=== PATIENT | male | born 1990 | race Caucasian/White ===

== ENCOUNTER 2019-08-03 23:29 | Emergency (ER) | payer OTHER ==
[2019-08-04] MEDS ORDERED: hydrOXYzine Pamoate 25 mg Capsule ONE (01:13)
[2019-08-04] MEDS ORDERED: Nicotine 14 MG PATCH ONE (01:13)
[2019-08-04] MEDS ORDERED: OLANZapine 5 MG TAB ONE (01:13)
[2019-08-04] MEDS ORDERED: Acetaminophen 325 MG TAB ONE (01:13)
[2019-08-04] MEDS ORDERED: traZODone HCl 50 MG TAB ONE (01:13)
[2019-08-04 01:15] LABS: #Basophils 0.1 thou/uL (0.0-0.2); #Eosinphils 0.3 thou/uL (0.0-0.7); #Lymphocytes 3.1 thou/uL (1.20-3.40); #Monocytes 0.7 thou/uL (0.11-0.59); #Neutrophils 2.4 thou/uL (1.40-6.50); %Basophils 0.8 % (0.0-1.0); %Eosinophils 4.7 % (0.0-10.0); %Monocytes 9.9 % (0.0-10.0); %Neutrophils 36.6 % (42.0-75.0); Hemoglobin 15.2 g/dL (14.0-18.0); Mean Corpuscular Hemoglobin 35.5 pg (27.0-31.0); Mean Corpuscular Volume 98.7 fL (78.0-98.0); Mean Platelet Volume 7.1 fL (7.4-10.4); Platelet Count 275 thou/uL (130-400); Red Blood Cell (RBC) Count 4.29 mill/uL (4.70-6.10); White Blood Cell (WBC) Count 6.5 thou/uL (4.8-10.8)
[2019-08-04] MEDS ORDERED: Nicotine 14 MG PATCH TOP SCH (01:30)
[2019-08-04 01:39] LABS: ALT (SGPT) 10 U/L (8-55); AST (SGOT) 18 U/L (5-34); Acetaminophen Less than 6.0 mcg/mL (10.0-30.0); Albumin 4.1 g/dL (3.5-5.0); Alcohol 223 mg/dL (Less than 10); Alkaline Phosphatase 77 U/L (40-110); Anion Gap 18 mmol/L (10-20); BUN (Urea Nitrogen) 10 mg/dL (8.9-20.6); Bilirubin, Total 0.3 mg/dL (0.2-1.2); Calc. Creatinine Clearance 0 mL/min (70-130); Calcium 8.8 mg/dL (7.8-10.44); Carbon Dioxide 25 mmol/L (22-29); Chloride 102 mmol/L (98-107); Estimated GFR-MDRD Greater than 90; Globulin 2.4 g/dL (2.4-3.5); Glucose 199 mg/dL (70-105); Potassium 3.3 mmol/L (3.5-5.1); Protein, Total 6.5 g/dL (6.0-8.3); Salicylate Less than 8.0 mg/dL (15.0-30.0); Sodium 142 mmol/L (136-145)
[2019-08-04 01:41] LABS: Troponin I Less than 0.010 ng/mL (< 0.028)
[2019-08-04] MEDS ORDERED: chlordiazePOXIDE HCl 25 MG CAP ONE (06:36)
[2019-08-04 07:23] LABS: Amphetamine Not Detected (NotDetected); Barbiturates Screen Not Detected (NotDetected); Benzodiazepine Screen Not Detected (NotDetected); Cocaine Metabolite Screen Not Detected (NotDetected); Medtox Control Line Valid? VALID (VALID); Medtox Reader # READER 1; Methadone Not Detected (NotDetected); Methamphetamine Not Detected (NotDetected); Opiate Screen Not Detected (NotDetected); Oxycodone Screen Not Detected (NotDetected); Phencyclidine (PCP) Not Detected (NotDetected); THC/Cannabinoid Screen Not Detected (NotDetected); Tricyclic Screen Not Detected (NotDetected)
[2019-08-04] MEDS ORDERED: Insulin Regular 300 UNITS/3 ML VIAL ONE (14:51)
== END 2019-08-04 15:41 ==
LOC: ERS 23:29
DX: R45.851 Suicidal ideations (principal); E10.9 Type 1 diabetes mellitus without complications; F41.9 Anxiety disorder, unspecified; F31.9 Bipolar disorder, unspecified; F43.10 Post-traumatic stress disorder, unspecified; F17.210 Nicotine dependence, cigarettes, uncomplicated
CPT/HCPCS: 36415; 36416; 80053; 80306; 80307; 84443; 84484; 85025; 96372; 99285; J1815; Q0177